=== PATIENT | male | born 1965 | race Caucasian/White ===

== ENCOUNTER 2019-10-18 17:27 | Emergency (ER) | payer OTHER ==
[~2019-10-18] VITALS: Ht 182.9 cm; Wt 147.4 kg
[2019-10-18] MEDS ORDERED: DOXYCYCLINE 10100 M2 PO (18:57)
[2019-10-18] MEDS ORDERED: NORCO 5-325 TA1 EAC1 PO (18:57)
[2019-10-18 19:25] VITALS: BP 154/77
== END 2019-10-18 19:26 | disposition home or self-care (01) ==
LOC: M.ERS 17:27
DX: L03.115 Cellulitis of right lower limb (principal); Z88.0 Allergy status to penicillin